=== PATIENT | male | born 1965 | race Caucasian/White ===

== ENCOUNTER 2022-04-11 07:24 | Emergency (ER) | payer OTHER ==
[2022-04-11] MEDS ORDERED: Sodium Chloride 0.9% 10 ML Syringe FLUSH PRN (07:29)
[2022-04-11] MEDS ORDERED: Sodium Chloride 0.9% 1,000 ML IV SCH (07:30)
[2022-04-11] MEDS ORDERED: Ondansetron 4 MG/2 ML SDV IVPUSH ONE (08:43)
[2022-04-11] MEDS ORDERED: Sodium Chloride 0.9% 500 ML IV ONE (08:43)
[2022-04-11] MEDS ORDERED: HYDROmorphone 2 MG/ML SDV IVPUSH ONE (08:43)
[2022-04-11] MEDS ORDERED: Acetaminophen/oxyCODONE 325-5 MG Tab ONE (09:00)
[2022-04-11] MEDS ORDERED: HYDROmorphone 2 MG/ML Syringe ONE (09:01)
[2022-04-11] MEDS ORDERED: Ondansetron 4 MG/2 ML SDV ONE (09:01)
== END 2022-04-11 09:18 | disposition home or self-care (01) ==
LOC: LB.ED 07:24
DX: S01.511A Laceration without foreign body of lip, initial encounter (principal); S30.0XXA Contusion of lower back and pelvis, initial encounter; W01.198A Fall on same level from slipping, tripping and stumbling with subsequent striking against other object, initial encounter
CPT/HCPCS: 12013; 36415; 70450; 72125; 74176; 80053; 80307; 83690; 85025; 96361; 96374; 96375; 99284; A9270; J1170; J2405; J7040; 99282